=== PATIENT | male | born 1975 | race Caucasian/White ===

== ENCOUNTER 2019-10-08 15:30 | Day surgery (SDC) | payer OTHER ==
[~2019-10-08 15:30] MED LIST: Dexamethasone 20 MG/5 ML VIAL ONE; Iopamidol-370 76% 500 ML 1 ML ONE; Ketorolac Tromethamine 30 MG/ML VIAL ONE; Ondansetron PF 4 MG/2 ML Vial ONE; PROPOFOL 200 MG/20 ML VIAL ONE; diphenhydrAMINE 50 MG/ML VIAL ONE
[2019-10-08 16:58] LABS: #Lymphocytes 1.4 thou/uL (1.20-3.40); #Monocytes 0.8 thou/uL (0.11-0.59); #Neutrophils 7.3 thou/uL (1.40-6.50); %Basophils 0.3 % (0.0-1.0); %Eosinophils 0.1 % (0.0-10.0); %Lymphocytes 14.3 % (21.0-51.0); %Monocytes 8.4 % (0.0-10.0); %Neutrophils 76.8 % (42.0-75.0); Hemoglobin 14.8 g/dL (14.0-18.0); Mean Corpuscular HGB CONC 32.1 g/dL (32.0-36.0); Mean Corpuscular Hemoglobin 28.7 pg (27.0-31.0); Mean Corpuscular Volume 89.5 fL (78.0-98.0); Mean Platelet Volume 8.7 fL (7.4-10.4); Platelet Count 177 thou/uL (130-400); RBC Distribution Width 11.9 % (11.5-14.5); Red Blood Cell (RBC) Count 5.15 mill/uL (4.70-6.10); White Blood Cell (WBC) Count 9.5 thou/uL (4.8-10.8)
[2019-10-08] MEDS ORDERED: Morphine 4 MG/ML VIAL ONE (17:01)
[2019-10-08] MEDS ORDERED: metroNIDAZOLE 500 MG/100 ML BAG ONE (17:02)
--- NOTE | 2019-10-08 17:04 | CT ---
CT pelvis with IV contrast HISTORY: Pelvic infection. Perianal abscess. FINDINGS: Urinary bladder is unremarkable. No free air or free fluid within the pelvis. The abdomen w as not imaged. Within the subcutaneous right para midline gluteal tissues, there is fluid stranding throughout the f at and mild expansion. Extensive irregular pockets of gas throughout the subcutaneous tissues. The gas extends far anteriorly into the perineal tissues, to the base of the scrotum right side. Immediately right and posterior to the anus, a pocket of gas and fluid shows irregular margins. It me asures up to 2.7 cm length by 1.9 cm depth by 1.2 cm width. IMPRESSION: Right perianal abscess, measuring up to 2.7 cm greatest length, with non walled off gas e xtending throughout the medial right subcutaneous tissues of the pelvis, extending anteriorly into the perineum and to the base of the scrotum.
[2019-10-08 17:10] LABS: ALT (SGPT) 16 U/L (8-55); AST (SGOT) 19 U/L (5-34); Albumin 4.2 g/dL (3.5-5.0); Alkaline Phosphatase 73 U/L (40-110); Anion Gap 17 mmol/L (10-20); BUN (Urea Nitrogen) 10 mg/dL (8.9-20.6); Bilirubin, Total 0.7 mg/dL (0.2-1.2); Calc. Creatinine Clearance 0 mL/min (70-130); Calcium 9.2 mg/dL (7.8-10.44); Carbon Dioxide 23 mmol/L (22-29); Chloride 100 mmol/L (98-107); Estimated GFR-MDRD 87; Globulin 3.1 g/dL (2.4-3.5); Glucose 99 mg/dL (70-105); Potassium 3.8 mmol/L (3.5-5.1); Protein, Total 7.3 g/dL (6.0-8.3); Sodium 136 mmol/L (136-145)
--- NOTE | 2019-10-08 18:00 | HP ---
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 He is experiencing at times some bloody purulent drainage. He developed increased pain, presented to the emergency room, was noted to have severe pain on the right. He is a customer service trainer and has not been able to ride his horses. His white count is 9 and hemoglobin 14. CAT scan was obtained, revealed soft tissue gas. He has not had a colonoscopy. Bowel habits have been normal prior to this. ALLERGIES: PENICILLIN. SOCIAL HISTORY: Tobacco, none. Alcohol, rarely. PAST SURGICAL HISTORY: Noncontributory. PAST MEDICAL HISTORY: Noncontributory. PHYSICAL EXAMINATION: VITAL SIGNS: Heart rate 68, respiratory rate 18, blood pressure 112/68. HEAD, EARS, EYES, NOSE, AND THROAT: Unremarkable. LUNGS: Clear to auscultation. CARDIAC: Regular rate and rhythm without murmur or gallop. ABDOMEN: Soft and nontender. EXTREMITIES: Unremarkable. The patient has right buttock perianal induration and fluctuance. ASSESSMENT: Perirectal abscess. PLAN: Incision and drainage. He understands the risks and benefits, consents. Job ID: [id number]
[2019-10-08] MEDS ORDERED: Promethazine HCl 25 MG/ML VIAL IM PRN (20:59)
[2019-10-08] MEDS ORDERED: Ondansetron HCl/PF 4 MG/2 ML Vial IVP PRN (20:59)
[2019-10-08] MEDS ORDERED: Promethazine HCl 25 MG/ML VIAL SLOW IVP PRN (20:59)
[2019-10-08] MEDS ORDERED: metroNIDAZOLE 500 MG TAB PO SCH (21:45)
[2019-10-08] MEDS ORDERED: Vancomycin HCl 25 MG/ML Oral PO SCH (21:45)
[2019-10-08] MEDS ORDERED: Acetaminophen 500 MG TAB PO SCH (21:45)
[2019-10-08] MEDS ORDERED: Sodium Chloride 0.9% 10 ML ONE (22:10)
[2019-10-08] MEDS ORDERED: Fentanyl 100 MCG/2 ML VIAL ONE (22:10)
--- NOTE | 2019-10-09 03:03 | OP ---
DATE OF PROCEDURE: 10/08/2019 PREOPERATIVE DIAGNOSIS: Right perirectal abscess. POSTOPERATIVE DIAGNOSIS: Right perirectal abscess, [id number]. PROCEDURE PERFORMED: Examination under anesthesia, drainage of right perirectal abscess, fistulotomy, superficial. ANESTHESIA: General, local 0.5% Marcaine, 30 mL mixed with 1% Xylocaine with epinephrine 20 mL total volume used. DESCRIPTION OF PROCEDURE: The patient was taken to the operating room, where in the dorsal lithotomy position, his buttocks was clipped of hair, prepared with Betadine and draped in routine fashion. The patient was noted to have a small opening in the right perianal. I probed this and it tracked toward the abscess. An abscess was drained and then fistulotomy performed with cautery opening the superficial skin, subcutaneous tissue track to the fistula. It was irrigated. There were some necrotic tissue debrided sharply down to healthy tissue. Wound irrigated. Good hemostasis noted. Wound packings applied. The patient tolerated the procedure well. The patient was sent home with vancomycin and Flagyl p.o. Job ID: [id number]
== END 2019-10-08 22:48 | disposition home or self-care (01) ==
LOC: ERS 15:30 → SDC/OP 18:11 → ERS 18:11 → SDC/OP 22:48
PROVIDERS: ATTEND Specialist
PROC: 0J9B3ZZ Drainage of Perineum Subcutaneous Tissue and Fascia, Percutaneous Approach (ICD-10-PCS; principal; 2019-10-08)
PROC: 0D9P3ZZ Drainage of Rectum, Percutaneous Approach (ICD-10-PCS; principal; 2019-10-08)
DX: K61.1 Rectal abscess (principal); Z88.0 Allergy status to penicillin; Z88.1 Allergy status to other antibiotic agents
CPT/HCPCS: 36415; 72193; 80053; 83605; 85025; 96365; 96368; 96375; J1100; J1200; J1885; J1956; J2270; J2405; J2704; J3010; Q9967